=== PATIENT | male | born 1985 | race Caucasian/White ===

== ENCOUNTER 2018-05-01 16:48 | Emergency (ER) | payer OTHER ==
[~2018-05-01] VITALS: Ht 162.6 cm; Wt 81.6 kg
[2018-05-01] MEDS ORDERED: NEURONTIN800 MG (17:25)
[2018-05-01] MEDS ORDERED: PNEU16DI2 (17:25)
[2018-05-01] MEDS ORDERED: LIPITOR20 MG (17:26)
[2018-05-01] MEDS ORDERED: ZANTAC150 M3 (17:26)
[2018-05-01] MEDS ORDERED: SYNTHROID88 MCG (17:26)
[2018-05-01] MEDS ORDERED: SINGULAIR10 MG (17:26)
[2018-05-01] MEDS ORDERED: HUMILIN (17:28)
[2018-05-01] MEDS ORDERED: DICY20TA (17:29)
== END 2018-05-01 21:07 | disposition home or self-care (01) ==
LOC: ER 16:48
DX: K29.70 Gastritis, unspecified, without bleeding (principal); E11.9 Type 2 diabetes mellitus without complications

== ENCOUNTER 2018-05-20 07:06 | Day surgery (SDC) | payer OTHER ==
[~2018-05-20 07:06] MED LIST: DICY20TA; HUMILIN; LIPITOR20 MG; NEURONTIN800 MG; PERCOCET 5-3251 EACH; PNEU16DI2; SINGULAIR10 MG; SYNTH PO; SYNTHROID88 MCG; XANAX2 MG; ZANTAC150 M3
== END 2018-05-20 09:40 | disposition home or self-care (01) ==
LOC: CIR.AMB 07:06
DX: D13.1 Benign neoplasm of stomach (principal); K29.50 Unspecified chronic gastritis without bleeding